=== PATIENT | female | born 1960 | race Caucasian/White ===

== ENCOUNTER 2021-09-21 17:09 | Emergency (ER) | payer MEDICAID ==
[~2021-09-21] VITALS: Ht 154.9 cm; Wt 66.0 kg
[2021-09-21 17:55] LABS: BASOPHILS % 0.9 % (0.0-2.0); EOSINOPHILS % 0.6 % (0.0-5.0); HEMATOCRIT. 41.5 % (36.0-48.0); HEMOGLOBIN. 13.9 g/dL (12.0-16.0); LYMPHOCYTES % 58.5 % (20.0-50.0); MEAN CORPUSCULAR HEMOGLOBIN 30.1 pg (28.0-32.0); MEAN CORPUSCULAR VOLUME 89.8 fL (81.0-99.0); MEAN PLATELET VOLUME 9.9 fl (7.4-10.4); MONOCYTES % 6.9 % (2.0-8.0); NEUTROPHILS % 33.1 % (40.0-76.0); PLATELET 232 x1000/uL (130-400); RED BLOOD CELL COUNT 4.62 mill/uL (4.2-5.4); RED CELL DISTRIBUTION WIDTH 13.7 % (11.6-14.6)
[2021-09-21 18:05] LABS: CHLORIDE 103 mEq/L (98-107)
[2021-09-21 19:49] VITALS: BP 121/72
== END 2021-09-21 19:51 | disposition home or self-care (01) ==
LOC: ER 17:09
DX: R07.89 Other chest pain (principal); R53.1 Weakness; Z98.890 Other specified postprocedural states; Z90.710 Acquired absence of both cervix and uterus; Z98.51 Tubal ligation status
CPT/HCPCS: 36415; 71045; 80048; 84484; 85025; 93005; 99285

== ENCOUNTER 2023-07-05 23:09 | Emergency (ER) | payer MEDICAID, OTHER ==
[~2023-07-05] VITALS: Ht 149.9 cm; Wt 66.5 kg
[2023-07-05 23:24] VITALS: O2SAT 98
[2023-07-05 23:59] LABS: CLARITY URINE CLEAR (CLEAR); COLOR URINE RED (YELLOW); GLUCOSE URINE NEGATIVE (NEGATIVE); KETONES URINE NEGATIVE (NEGATIVE); LEUKOCYTE ESTERASE URINE 2+ (NEGATIVE); NITRITE URINE NEGATIVE (NEGATIVE); OCCULT BLOOD URINE 3+ (NEGATIVE); PROTEIN URINE 2+ (NEGATIVE); SPECIFIC GRAVITY URINE 1.004 (1.005-1.030); UROBILINOGEN URINE 0.2 E.U./dL (0.2-1.0)
[2023-07-06 00:02] LABS: YEAST URINE NONE SEEN
[2023-07-06 00:08] LABS: BASOPHILS % 0.7 % (0.0-2.0); EOSINOPHILS % 0.9 % (0.0-5.0); HEMATOCRIT. 41.9 % (36.0-48.0); LYMPHOCYTES % 42.9 % (20.0-50.0); MEAN CORPUSCULAR HEMOGLOBIN 29.9 pg (28.0-32.0); MEAN CORPUSCULAR HGB CONC 33.4 g/dL (31.0-37.0); MEAN CORPUSCULAR VOLUME 89.4 fL (81.0-99.0); MEAN PLATELET VOLUME 9.5 fl (7.4-10.4); NEUTROPHILS % 48.5 % (40.0-76.0); PLATELET 233 x1000/uL (130-400); RED BLOOD CELL COUNT 4.68 mill/uL (4.2-5.4)
[2023-07-06 00:10] LABS: CHLORIDE 108 mEq/L (98-107); INDEX HEMOLYSI 1 (1-3); INDEX ICTERIC 1 (1-4); INDEX LIPEMIC 1 (1-3); POTASSIUM 3.7 mEq/L (3.5-5.1); SODIUM 136 mEq/L (136-145)
[2023-07-06] MEDS ORDERED: KETOROLAC 30MG/ML VIAL IM ONE (00:15)
[2023-07-06 00:17] LABS: CALCIUM 9.1 mg/dL (8.5-10.1); CARBON DIOXIDE 23 mEq/L (21-32); CREATININE 0.5 mg/dL (0.6-1.3); GLUCOSE 111 mg/dL (70-105); UREA NITROGEN BLOOD 11 mg/dL (7-21)
[2023-07-06 00:21] VITALS: BP 153/83
[2023-07-06] MEDS ORDERED: CEPHALEXIN 250MG CAPSULE PO ONE (01:00)
[2023-07-06] MEDS ORDERED: CEPH500C2 MT (01:34)
[2023-07-06] MEDS ORDERED: IBUP-2029 MT (01:34)
[2023-07-06 01:47] VITALS: PULSE 99; RESP 16; TEMP 98.1
[2023-07-06 02:37] LABS: SQUAMOUS EPITHELIAL CELL URINE FEW /lpf (RARE/1+)
[2023-07-06 02:48] LABS: BACTERIA URINE 3+; RBC URINE 25-50 /hpf (0-2)
== END 2023-07-06 01:49 | disposition home or self-care (01) ==
LOC: ER 23:09
DX: R31.9 Hematuria, unspecified (principal); N39.0 Urinary tract infection, site not specified; Z90.49 Acquired absence of other specified parts of digestive tract; Z98.890 Other specified postprocedural states
CPT/HCPCS: 99285; 80048; 81003; 85025; 36415; 76830; 76856; 96372; J1885

== ENCOUNTER 2024-11-11 19:47 | Emergency (ER) | payer MEDICAID, OTHER ==
[~2024-11-11] VITALS: Ht 149.9 cm; Wt 62.0 kg
[~2024-11-11 19:47] MED LIST: CEPH500C2 MT; IBUP-2029 MT
[2024-11-11 20:05] VITALS: TEMP 36.9; O2SAT 99
[2024-11-12 00:08] LABS: CHLORIDE 107 mEq/L (98-107); POTASSIUM 4.2 mEq/L (3.5-5.1); SODIUM 142 mEq/L (136-145)
[2024-11-12 00:09] LABS: CARBON DIOXIDE 23 mEq/L (21-32)
[2024-11-12 00:10] LABS: CALCIUM 9.7 mg/dL (8.7-10.4)
[2024-11-12 00:14] LABS: BASOPHILS % 0.9 % (0.0-2.0); CREATININE 0.7 mg/dL (0.6-1.0); EOSINOPHILS % 1.8 % (0.0-5.0); GLUCOSE 110 mg/dL (70-105); HEMOGLOBIN. 13.2 g/dL (12.0-16.0); LYMPHOCYTES % 59.9 % (20.0-50.0); MEAN CORPUSCULAR HEMOGLOBIN 31.1 pg (28.0-32.0); MEAN CORPUSCULAR HGB CONC 33.8 g/dL (31.0-37.0); MEAN CORPUSCULAR VOLUME 92.1 fL (81.0-99.0); MEAN PLATELET VOLUME 10.3 fl (7.4-10.4); MONOCYTES % 8.6 % (2.0-8.0); NEUTROPHILS % 28.8 % (40.0-76.0); PLATELET 218 x1000/uL (130-400); RED BLOOD CELL COUNT 4.23 mill/uL (4.2-5.4); RED CELL DISTRIBUTION WIDTH 13.8 % (11.6-14.6); UREA NITROGEN BLOOD 20 mg/dL (9-23)
[2024-11-12 00:33] LABS: PROTHROMBIN TIME 11.1 sec (9.6-11.0)
[2024-11-12 00:43] LABS: TROPONIN I HIGH SENSITIVITY < 4 ng/L (3.0-34)
[2024-11-12] MEDS ORDERED: IBUP-2029 MT (01:35)
[2024-11-12] MEDS ORDERED: METH-653 MT (01:35)
[2024-11-12] MEDS: KETOROLAC 30MG/ML VIAL IM NR (02:37)
[2024-11-12] MEDS: KETOROLAC 30MG/ML VIAL IM ONE (02:38)
[2024-11-12 02:42] VITALS: BP 139/53; PULSE 81; RESP 18; O2SAT 99
[2024-11-12 03:02] LABS: CLARITY URINE CLOUDY (CLEAR); COLOR URINE YELLOW (YELLOW); GLUCOSE URINE NEGATIVE (NEGATIVE); KETONES URINE NEGATIVE (NEGATIVE); LEUKOCYTE ESTERASE URINE 1+ (NEGATIVE); NITRITE URINE NEGATIVE (NEGATIVE); OCCULT BLOOD URINE NEGATIVE (NEGATIVE); PROTEIN URINE NEGATIVE (NEGATIVE); SPECIFIC GRAVITY URINE 1.021 (1.005-1.030); UROBILINOGEN URINE 0.2 E.U./dL (0.2-1.0)
[2024-11-12 06:46] LABS: SQUAMOUS EPITHELIAL CELL URINE 1+ /lpf (RARE/1+)
[2024-11-12 06:49] LABS: RBC URINE 0-2 /hpf (0-2)
[2024-11-12 06:51] LABS: BACTERIA URINE TRACE
[2024-11-12 06:52] LABS: CALCIUM OXALATE CRYSTALS URINE 1+ /lpf
== END 2024-11-12 02:43 | disposition home or self-care (01) ==
LOC: ER 19:47
DX: S43.401A Unspecified sprain of right shoulder joint, initial encounter (principal); I10 Essential (primary) hypertension; Z90.49 Acquired absence of other specified parts of digestive tract; Z98.890 Other specified postprocedural states; X58.XXXA Exposure to other specified factors, initial encounter; Y93.89 Activity, other specified; Y92.89 Other specified places as the place of occurrence of the external cause; Y99.8 Other external cause status
CPT/HCPCS: 80048; 81025; 83880; 85025; 85610; 84484; 36415; 71045; 73030; 93005; 99285; 81003; 96372; J1885; Z7610